=== PATIENT | female | born 1975 | race Caucasian/White ===

== ENCOUNTER 2017-01-01 03:00 | Emergency (ER) | payer OTHER ==
[~2017-01-01] VITALS: Ht 157.5 cm; Wt 61.4 kg
[~2017-01-01 03:00] MED LIST: LORA0.5T PO; LSNP10T; METO-270 PO; NF-FLON16G; PROM12.59; PROM12.59 PO; SERT25TA69 PO; TOPI25CA PO; TPR25T
--- OUTSIDE RECORDS SUMMARY | 2017-01-01 03:05 | XMS REPORT | Summary of Care ---
Author Author Tye Bush M.D. Organization Unknown Address Unknown Phone Unavailable Care Team Providers [employer] Employee Name Role Phone Gregg Us, [employer], ,, Zack Unavailable Unavailable Bryce Bush M.D. Unavailable Unavailable Abhay Coley Unavailable Unavailable Unavailable Unavailable Functional Status Name Dates Details Functional status health issues are not documented Status: Name Dates Details Cognitive status health issues are not documented Status: Problems Name Dates Details Dyspnea (786.09, R06.00) Status: Active Shortness of breath at rest (786.05, R06.02) Status: Active Chest pain (786.50, R07.9) Status: Active Migraine (346.90, G43.909) Status: Active Dysphagia (787.20, R13.10) Status: Active GERD (gastroesophageal reflux disease) (530.81, K21.9) Status: Active NUD (nonulcer dyspepsia) (536.8, K30) Status: Active Esophagitis (530.10, K20.9) Status: Active Gastritis (535.50, K29.70) Status: Active Intractable chronic migraine without aura (346.71, G43.719) Status: Active Complicated migraine (346.00, G43.109) Status: Active Benign essential hypertension (401.1, I10) Status: Active Medications Name Dates Details Promethazine HCl - 12.5 MG Oral Tablet TAKE 1 TABLET EVERY 4 HOURS NEEDED. Refills: 0 Start 23-May-2015 Active Ativan 0.5 MG Oral Tablet TAKE 1 TABLET EVERY 6 HOURS NEEDED. Refills: 0 Start 21-Dec-2015 Active B Complex Oral Capsule TAKE 1 CAPSULE DAILY. Refills: 0 Tye Bush M.D. Start 24-May-2016 Active Probiotic Oral Capsule USE DIRECTED. Refills: 0 Tye Bush M.D. Start 24-May-2016 Active MiraLax Oral Powder MIX 1 CAPFUL (17GM) IN 8 OUNCES OF WATER, JUICE, OR TEA AND DRINK DAILY. Refills: 0 Rachelle UsTye Start 24-May-2016 Active Pantoprazole Sodium 40 MG Oral Tablet Delayed Release Take One Tablet By Mouth Twice Daily Quantity: 60 Refills: 2 Gregg Us FACS, Scott Start 24-May-2016 Active Migranal 4 MG/ML Nasal Solution USE 1 SPRAY IN EACH NOSTRIL. REPEAT 15 MINUTES LATER FOR A TOTAL DOSE OF 4 SPRAYS. MAXIMUM 6 SPRAYS PER 24 HOURS AND 8 SPRAYS PER 7 DAYS. Quantity: 1 Refills: 3 Rachelle UsTye Start 25-May-2016 Active 1 ML Glass Cont (8 Glass Conts) Allergies and Adverse Reactions Name Dates Details No Known Drug Allergies (Allergy) Status: Active Past Medical History Name Dates Details Benign essential hypertension (401.1, I10) Status: Active Migraine (346.90, G43.909) Status: Active History of abnormal weight loss (V13.89, Z87.898) Status: Resolved History of blurred vision (V12.49, Z86.69) Status: Resolved History of constipation (V12.79, Z87.19) Status: Resolved History of diarrhea (V12.79, Z87.898) Status: Resolved History of dizziness (V13.89, Z87.898) Status: Resolved History of headache (V13.89, Z87.898) Status: Resolved History of low back pain (V13.59, Z87.39) Status: Resolved History of Neck pain (723.1, M54.2) Status: Resolved History of Numbness (782.0, R20.0) Status: Resolved History of Tinnitus of both ears (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.30, H93.13) Status: Resolved Procedures Procedure Dates Details History of Cholecystectomy History of Section History of Complete Colonoscopy Procedures not documented Immunization Name Dates Details Immunizations not documented Family History Name Dates Details Family history of acute myocardial infarction (V17.3, Z82.49) Status: Active Family history of CAD (coronary artery disease) (414.00, I25.10) Status: Active Name Dates Details Family history of hypertension (V17.49, Z82.49) Status: Active Social History Name Dates Details - Status: Name Dates Details Never smoker Vital Signs Date Test Result Details 24-May-2016 10:15 BP Systolic 120 mm[Hg] Status: Comments: Location: ; Position: BP Diastolic 70 mm[Hg] Status: Comments: Location: ; Position: Heart Rate 87 /min Status: Comments: Location: ; Height 62 in Status: Weight 129.0 lb Status: Physical Findings 99 Status: Comments: O2 Saturation Body Mass Index Calculated 23.59 kg/m2 Status: Body Surface Area Calculated 1.59 m2 Status: 21-May-2016 10:19 BP Systolic 112 mm[Hg] Status: Comments: Location: ; Position: BP Diastolic 83 mm[Hg] Status: Comments: Location: ; Position: Heart Rate 81 /min Status: Comments: Location: ; Physical Findings 18 Status: Comments: Respiration Weight 127 lb Status: Body Mass Index Calculated 23.23 kg/m2 Status: Body Surface Area Calculated 1.58 m2 Status: 07-May-2016 14:52 BP Systolic 134 mm[Hg] Status: Comments: Location: LUE; Position: Sitting BP Diastolic 88 mm[Hg] Status: Comments: Location: LUE; Position: Sitting Heart Rate 101 /min Status: Comments: Location: ; Physical Findings 18 Status: Comments: Respiration Height 62 in Status: Weight 133 lb Status: Body Mass Index Calculated 24.33 kg/m2 Status: Body Surface Area Calculated 1.61 m2 Status: Results Date Description Value Details Results not documented Plan of Care Name Dates Details Planned Observations Planned Goals not documented Planned Encounters Appointment; Provider: Tye Bush M.D. On 26-Jul-2016 09:00 Appointment; Provider: Yana Estrada M.D. On 25-Jul-2016 09:00 Appointment; Provider: Zack Escobedo M.D.|[facility], On 07-Jun-2016 09:00 Interventions Provided Medication ChangesMigranal 4 MG/ML Nasal Solution - Start Instructions Name Dates Details Instructions not documented Encounters Appointment; Zack Escobedo M.D.|[facility], Encounter Diagnosis: Problem not documented On 22-May-2016 08:30 Appointment; Bruce Glass Encounter Diagnosis: Problem not documented On 22-May-2016 08:00 Appointment; Ananda Bai P.A. Encounter Diagnosis: Problem not documented On 21-May-2016 10:30 Appointment; Ananda Bai P.A. Encounter Diagnosis: Problem not documented On 07-May-2016 14:30 Appointment; Yana Estrada M.D. Encounter Diagnosis: Problem not documented On 21-Dec-2015 09:45 Appointment; Yana Estrada M.D. Encounter Diagnosis: Problem not documented On 29-May-2015 14:30"
[2017-01-01] MEDS ORDERED: AML5T PO (03:23)
[2017-01-01] MEDS ORDERED: PROMETHAZINE 25 MG/ML (PHENERGAN) 1 ML VIAL IM ONE (03:35)
[2017-01-01] MEDS ORDERED: HYDROmorphone 1 MG/ML (DILAUDID) SYRINGE IM ONE (03:35)
[2017-01-01] MEDS ORDERED: KETOROLAC 60 MG/2 ML (TORADOL) VIAL IM ONE (03:35)
[2017-01-01] MEDS ORDERED: BELLADONNA/PHENOBARBITAL ELIXIR (DONNATAL) 10 ML UDC ONE (04:54)
[2017-01-01] MEDS ORDERED: MAG HYDROX/AL HYDROX/SIMETH 400-400-40/5 ML (MAG-AL PLUS XS) 30 ML UDC ONE (04:54)
[2017-01-01] MEDS ORDERED: LIDOCAINE 2% VISCOUS 20ML UDC PO ONE (04:54)
[2017-01-01] MEDS ORDERED: ONDANSETRON 4 MG (ZOFRAN) ORAL DISSOLVE TAB PO ONE (04:55)
[2017-01-01] MEDS ORDERED: GI COCKTAIL 55 ML UDC PO ONE (04:55)
[2017-01-01 05:05] VITALS: BP 123/84
--- NOTE | 2017-01-01 07:02 | Diagnostic Imaging Report ---
PROCEDURE: CT head without contrast. TECHNIQUE: Multiple contiguous axial images were obtained through the brain without the use of intravenous contrast. INDICATION: Frontal headache since Friday. COMPARISON STUDIES: None. FINDINGS: Noncontrast CT scan of the head demonstrates no mass effect, midline shift, hemorrhage or extra-axial fluid collections. Hennessy-white matter differentiation is normal. Bone windows demonstrate no evidence of fracture. No fluid is seen in the mastoid air cells or the visualized portions of the paranasal sinuses. IMPRESSION: Normal CT scan of the head. Dictated by: Dictated on workstation # [id number]
== END 2017-01-01 05:15 | disposition home or self-care (01) ==
LOC: ED 03:02
DX: G43.909 Migraine, unspecified, not intractable, without status migrainosus (principal); I10 Essential (primary) hypertension
CPT/HCPCS: 70450; 96372; 99284; J1170; J1885; J2550; 99283